=== PATIENT | female | born 1965 | race African-American/Black ===

== ENCOUNTER 2017-11-27 07:33 | Emergency (ER) | payer SELFPAY ==
[~2017-11-27] VITALS: Ht 167.6 cm; Wt 65.0 kg
[2017-11-27] MEDS ORDERED: IBUPROFEN 600MG TABLET PO ONE (08:30)
[2017-11-27] MEDS ORDERED: HYDROCODONE/ACETAMINOPHEN 5/325MG TABLET PO ONE (08:30)
[2017-11-27 09:52] LABS: BASOPHILS % 0.3 % (0.0-2.0); EOSINOPHILS % 0.6 % (0.0-5.0); HEMATOCRIT. 41.9 % (36.0-48.0); HEMOGLOBIN. 13.6 g/dL (12.0-16.0); LYMPHOCYTES % 7.4 % (20.0-50.0); MEAN CORPUSCULAR HEMOGLOBIN 29.8 pg (28.0-32.0); MEAN CORPUSCULAR VOLUME 92.1 fL (81.0-99.0); MEAN PLATELET VOLUME 7.9 fl (7.4-10.4); MONOCYTES % 5.3 % (2.0-8.0); NEUTROPHILS % 86.4 % (40.0-76.0); PLATELET 287 x1000/uL (130-400); RED BLOOD CELL COUNT 4.54 mill/uL (4.2-5.4)
[2017-11-27 09:58] LABS: CHLORIDE 102 mEq/L (98-107)
[2017-11-27 10:05] LABS: PARTIAL THROMBOPLASTIN TIME 25.7 sec (23.4-31.0); PROTHROMBIN TIME 9.9 sec (9.1-11.1)
[2017-11-27] MEDS ORDERED: IOHEXOL-300 100 ML BOTTLE ONE (10:57)
[2017-11-27 11:44] VITALS: BP 131/80
== END 2017-11-27 12:01 | disposition home or self-care (01) ==
LOC: ER 07:33
DX: M79.1 Myalgia (principal); M79.89 Other specified soft tissue disorders; R07.9 Chest pain, unspecified; M54.2 Cervicalgia; I10 Essential (primary) hypertension; F17.200 Nicotine dependence, unspecified, uncomplicated; Z88.1 Allergy status to other antibiotic agents; V49.88XA Car occupant (driver) (passenger) injured in other specified transport accidents, initial encounter; Y93.89 Activity, other specified; Y92.89 Other specified places as the place of occurrence of the external cause; Y99.8 Other external cause status
CPT/HCPCS: 36415; 70491; 71045; 71260; 73090; 80053; 85025; 85610; 85730; 86850; 86900; 86901; 93005; 99285; Q9967; Z7610